=== PATIENT | female | born 1975 | race Caucasian/White ===

== ENCOUNTER 2017-08-28 17:01 | Emergency (ER) | payer SELFPAY ==
[~2017-08-28] VITALS: Ht 160 cm; Wt 105.7 kg
[2017-08-28 17:37] VITALS: Ht 160 cm; Wt 105.7 kg
[2017-08-28 23:06] VITALS: BP 107/70
== END 2017-08-28 23:06 | disposition home or self-care (01) ==
LOC: ED 17:01
DX: R10.31 Right lower quadrant pain (principal); M54.5 Low back pain; M25.551 Pain in right hip
CPT/HCPCS: J1885